=== PATIENT | male | born 1995 | race Two or more races ===

== ENCOUNTER 2019-06-15 20:44 | Emergency (ER) | payer SELFPAY ==
--- NOTE | 2019-06-15 22:19 | ER Document Report ---
ED Medical Screen (RME) - General Chief Complaint: Drug Abuse Stated Complaint: DETOX Time Seen by Provider: 06/15/19 22:17 Notes: 24-year-old male presents for detox from marijuana and methamphetamine. Patient denies SI or HI. Patient is nontoxic, well-appearing. I have greeted and performed a rapid initial assessment of this patient. A comprehensive ED assessment and evaluation of the patient, analysis of test results and completion of the medical decision making process with be conducted by additional ED providers. TRAVEL OUTSIDE OF THE U.S. IN LAST 30 DAYS: No - Related Data Allergies/Adverse Reactions: No Known Allergies Allergy (Unverified 06/15/19 22:15) Past Medical History - Social History Frequency of alcohol use: Rare Physical Exam - Vital signs Vitals: Temp Pulse Resp BP Pulse Ox 97.6 F 58 L 18 102/70 100 06/15/19 22:00 06/15/19 22:00 06/15/19 22:00 06/15/19 22:00 06/15/19 22:00 Course - Vital Signs Vital signs: Temp Pulse Resp BP Pulse Ox 97.6 F 58 L 18 102/70 100 06/15/19 22:00 06/15/19 22:00 06/15/19 22:00 06/15/19 22:00 06/15/19 22:00
[2019-06-15 22:58] LABS: ABSOLUTE EOSINOPHILS # (AUTO) 0.2 10^3/uL (0.0-0.6); ABSOLUTE LYMPHOCYTES (AUTO) 3.5 10^3/uL (0.5-4.7); ABSOLUTE MONOCYTES (AUTO) 0.9 10^3/uL (0.1-1.4); ABSOLUTE NEUT (AUTO) 9.4 10^3/uL (1.7-8.2); BASOPHILS % (AUTO) 0.2 % (0-2); EOSINOPHILS % (AUTO) 1.8 % (0-6); HEMATOCRIT 44.2 % (37.9-51.0); HEMOGLOBIN 15.1 g/dL (13.5-17.0); LYMPHOCYTES % (AUTO) 25.1 % (13-45); MEAN CORPUSCULAR HEMOGLOBIN 31.3 pg (27.0-33.4); MEAN CORPUSCULAR HGB CONC 34.3 g/dL (32.0-36.0); MEAN CORPUSCULAR VOLUME 91 fl (80-97); MONOCYTES % (AUTO) 6.2 % (3-13); PLATELET COUNT 312 10^3/uL (150-450); RED BLOOD COUNT 4.83 10^6/uL (4.35-5.55); RED CELL DISTRIBUTION WIDTH 13.1 % (11.5-14.0); SEGMENTED NEUTROPHILS % (AUTO) 66.7 % (42-78); TOTAL CELLS COUNTED % (AUTO) 100 %; WHITE BLOOD COUNT 14.1 10^3/uL (4.0-10.5)
[2019-06-15 23:14] LABS: ACETAMINOPHEN < 10 ug/mL (10-30); ALBUMIN 4.4 g/dL (3.5-5.0); ALCOHOL < 10 mg/dL (NONE DETECTED); ALKALINE PHOSPHATASE 72 U/L (38-126); ANION GAP 7 (5-19); ASPARTATE AMINO TRANSFERASE 24 U/L (17-59); BILIRUBIN,TOTAL 0.7 mg/dL (0.2-1.3); BLOOD UREA NITROGEN 11 mg/dL (7-20); CALCIUM 9.7 mg/dL (8.4-10.2); CARBON DIOXIDE 29 mmol/L (22-30); CHLORIDE 104 mmol/L (98-107); GLUCOSE 80 mg/dL (75-110); POTASSIUM 4.3 mmol/L (3.6-5.0); SALICYLATE < 1.0 mg/dL (2.0-20.0); TOTAL PROTEIN 7.2 g/dL (6.3-8.2)
[2019-06-15 23:18] LABS: URINE AMPHETAMINES SCREEN NEGATIVE; URINE BARBITURATES SCREEN NEGATIVE; URINE BENZODIAZEPINES SCREEN NEGATIVE; URINE COCAINE SCREEN NEGATIVE; URINE MARIJUANA (THC) SCREEN NEGATIVE; URINE METHADONE SCREEN NEGATIVE; URINE PHENCYCLIDINE SCREEN NEGATIVE
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
[2019-06-16 03:20] VITALS: BP 104/58
--- NOTE | 2019-06-16 16:20 | EKG REPORT ---
SEVERITY:- ABNORMAL ECG - SINUS RHYTHM INFERIOR Q WAVES, PROBABLY NORMAL VARIATION BORDERLINE T ABNORMALITIES, ANT-LAT LEADS ST ELEVATION SUGGESTS PERICARDITIS : Confirmed by: Yodit Cordova MD 16-Jun-2019 16:18:59
== END 2019-06-16 03:43 | disposition home or self-care (01) ==
LOC: ER 20:44
DX: F15.10 Other stimulant abuse, uncomplicated (principal); F12.10 Cannabis abuse, uncomplicated; F17.200 Nicotine dependence, unspecified, uncomplicated
CPT/HCPCS: 36415; 80053; 80307; 85025; 93005; 93010; 99283

== ENCOUNTER 2019-06-16 03:56 | Emergency (ER) | payer SELFPAY ==
--- NOTE | 2019-06-16 06:23 | RADIOLOGY REPORT (SQ) ---
Left foot radiographs: 06/16/2019 5:21 AM [employer] TECHNIQUE: AP, lateral, oblique images of the left foot were obtained. COMPARISON: None available HISTORY: 24-year old patient with left foot pain. FINDINGS: There is an acute fracture through the second metatarsal head with diffuse overlying soft tissue swelling. No gross intra-articular extension is seen. IMPRESSION: There is an acute fracture through the second metatarsal of the left foot.
[2019-06-16] MEDS ORDERED: IBUPROFEN 800 MG TABLET PO ONE (08:45)
[2019-06-16 09:29] VITALS: BP 116/74
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
== END 2019-06-16 09:15 | disposition home or self-care (01) ==
LOC: ER 03:56
DX: S92.322A Displaced fracture of second metatarsal bone, left foot, initial encounter for closed fracture (principal); W22.09XA Striking against other stationary object, initial encounter; Y93.89 Activity, other specified; F15.10 Other stimulant abuse, uncomplicated; Z59.0 Homelessness
CPT/HCPCS: 99283

== ENCOUNTER 2019-07-16 09:28 | Emergency (ER) | payer OTHER ==
[2019-07-16 09:33] VITALS: BP 123/71
--- NOTE | 2019-07-16 10:02 | ER Document Report ---
HPI - HPI Patient complains to provider of: Medication injection Time Seen by Provider: 07/16/19 09:41 Onset: Other Pain Level: Denies Context: 24-year-old male presented to ED for a "medication injection for a anxiety medicine that he needs to get monthly. He did not know the name of the medication the dose or anything about the medication. He did not bring any kind of paperwork with him for me to be able to order the medications. I have informed him that he needs to go to where he got his medication last months have them give him his dose today and then bring paperwork with the name medication dose well and everything for the medication if he would like us to give him the injection. He needs to have 1 of the providers call here to let us know what the medication is that he will need to be receiving. He states he would also like to talk to mental health concerning a new placement as he has been evicted from his current placement. I have spoken with mental health and they have given you the phone numbers and resources and I have provided them to the patient to try to find placement. Associated Symptoms: None Exacerbated by: Denies Relieved by: Denies Similar symptoms previously: Yes Recently seen / treated by doctor: Yes - CONSTITUTIONAL Constitutional: DENIES: Fever, Chills - EENT EENT: DENIES: Sore Throat, Ear Pain, Nasal Drainage-Clear, Nasal Drainage- Purulent, Congestion, Eye problems - NEURO Neurology: DENIES: Headache, Weakness, Vision blurred, Dizzinesss / Vertigo - CARDIOVASCULAR Cardiovascular: DENIES: Chest pain - RESPIRATORY Respiratory: DENIES: Trouble Breathing, Coughing - GASTROINTESTINAL Gastrointestinal: DENIES: Abdominal Pain, Nausea, Patient vomiting, Diarrhea, Constipation, Black / Bloody Stools - URINARY Urinary: DENIES: Dysuria, Urgency, Frequency - REPRODUCTIVE Reproductive: DENIES: :, Postmenopausal, Abnormal bleeding / discharge - MUSCULOSKELETAL Musculoskeletal: DENIES: Extremity pain, Back Pain, Neck Pain, Swelling - DERM Skin Color: Normal Skin Problems: None Past Medical History - General Information source: Patient - Social History Smoking Status: Current Every Day Smoker Cigarette use (# per day): Yes - Pack a day Chew tobacco use (# tins/day): No Smoking Education Provided: Yes - 4 minutes Frequency of alcohol use: None Drug Abuse: None Lives with: Family Family History: Reviewed & Not Pertinent Patient has suicidal ideation: No Patient has homicidal ideation: No - Past Medical History Cardiac Medical History: Reports: None Pulmonary Medical History: Reports: None EENT Medical History: Reports: None Neurological Medical History: Reports: None Endocrine Medical History: Reports: None Renal/ Medical History: Reports: None GI Medical History: Reports: None Musculoskeletal Medical History: Reports Hx Musculoskeletal Trauma Skin Medical History: Reports None Psychiatric Medical History: Reports: Hx Anxiety, Hx Bipolar Disorder Traumatic Medical History: Reports: Hx Fractures Infectious Medical History: Reports: None Surgical Hx: Negative Past Surgical History: Reports: None - Immunizations Immunizations up to date: Yes Vertical Provider Document - CONSTITUTIONAL Agree With Documented VS: Yes Exam Limitations: No Limitations General Appearance: WD/WN, No Apparent Distress - INFECTION CONTROL TRAVEL OUTSIDE OF THE U.S. IN LAST 30 DAYS: No - HEENT HEENT: Atraumatic, Normal ENT Exam, Normocephalic, PERRLA - NECK Neck: Normal Inspection, Supple, Thyroid Normal - RESPIRATORY Respiratory: Breath Sounds Normal, No Respiratory Distress, Chest Non-Tender - CARDIOVASCULAR Cardiovascular: Regular Rate, Regular Rhythm, No Murmur - GI/ABDOMEN Gastrointestinal: Abdomen Soft, Abdomen Non-Tender, No Organomegaly, Normal Bowel Sounds - BACK Back: Normal Inspection - NEURO Level of Consciousness: Awake, Alert, Appropriate Motor/Sensory: No Motor Deficit, No Sensory Deficit, No Pronator Drift Deep Tendon Reflexes: 2+ - DERM Integumentary: Warm, Dry, No Rash Course - Vital Signs Vital signs: Temp Pulse Resp BP Pulse Ox 97.5 F 88 18 123/71 97 07/16/19 09:32 07/16/19 09:32 07/16/19 09:32 07/16/19 09:32 07/16/19 09:32 Discharge - Discharge Clinical Impression: Medication requested by patient but not prescribed or administered Disposition: HOME, SELF-CARE Additional Instructions: You were seen today for a refill/IM injection of a medication that you do not know the name or dose of. I have requested you go to the facility that you received this at last month have them give you a shot today and then send us a request for you to get this medication at the frequency dose and route that you are supposed to be getting this medication. Have them call the [facility] emergency room to let us know what the medication is a week and see if we gave that in the emergency room. You should also contact the resources I gave you for placement for you a place to live and contact the for human services to see if they give the medication that you are requesting at their facility. FOLLOW-UP CARE: If you have been referred to a physician for follow-up care, call the physicians office for an appointment as you were instructed or within the next two days. If you experience worsening or a significant change in your symptoms, notify the physician immediately or return to the Emergency Department at any time for re-evaluation. Forms: Smoking Cessation Education
== END 2019-07-16 10:10 | disposition home or self-care (01) ==
LOC: ER 09:28
DX: F41.9 Anxiety disorder, unspecified (principal); F17.210 Nicotine dependence, cigarettes, uncomplicated; Z71.6 Tobacco abuse counseling
CPT/HCPCS: 99281; 99406

== ENCOUNTER 2019-07-20 14:30 | Emergency (ER) | payer OTHER, MEDICAID ==
--- NOTE | 2019-07-20 15:08 | ER Document Report ---
ED Medical Screen (RME) - General Chief Complaint: Medical Clearance Stated Complaint: MEDICAL CLEARANCE Time Seen by Provider: 07/20/19 15:05 Mode of Arrival: Ambulatory Information source: Patient Notes: 24-year-old male presented to ED for clearance to go to [facility]. He states he needs to go to [facility] for mental health issues alcohol abuse and methamphetamine abuse. He is alert oriented respirations regular nonlabored speaking in full sentences. He was at [facility] but a month ago. I have greeted and performed a rapid initial assessment of this patient. A comprehensive ED assessment and evaluation of the patient, analysis of test results and completion of medical decision making process will be conducted by an additional ED providers. TRAVEL OUTSIDE OF THE [place].S. IN LAST 30 DAYS: No - Related Data Allergies/Adverse Reactions: No Known Allergies Allergy (Verified 07/16/19 09:33) Past Medical History Musculoskeltal Medical History: Reports Hx Musculoskeletal Trauma Psychiatric Medical History: Reports: Hx Anxiety, Hx Bipolar Disorder Traumatic Medical History: Reports: Hx Fractures - Immunizations Immunizations up to date: Yes Physical Exam - Vital signs Vitals: Temp Pulse Resp BP Pulse Ox 97.5 F 117 H 16 105/74 98 07/20/19 14:37 07/20/19 14:37 07/20/19 14:37 07/20/19 14:37 07/20/19 14:37 Course - Vital Signs Vital signs: Temp Pulse Resp BP Pulse Ox 97.5 F 117 H 16 105/74 98 07/20/19 14:37 07/20/19 14:37 07/20/19 14:37 07/20/19 14:37 07/20/19 14:37
--- NOTE | 2019-07-20 15:10 | ER Document Report ---
ED General - General Mode of Arrival: Ambulatory TRAVEL OUTSIDE OF THE U.S. IN LAST 30 DAYS: No - General Chief Complaint: Medical Clearance Stated Complaint: MEDICAL CLEARANCE Time Seen by Provider: 07/20/19 15:05 - Related Data Allergies/Adverse Reactions: No Known Allergies Allergy (Verified 07/16/19 09:33) Past Medical History - General Information source: Patient - Social History Smoking Status: Current Every Day Smoker Chew tobacco use (# tins/day): No Frequency of alcohol use: Heavy Drug Abuse: Methamphetamine Family History: Reviewed & Not Pertinent Patient has suicidal ideation: No Patient has homicidal ideation: No Musculoskeletal Medical History: Reports Hx Musculoskeletal Trauma Psychiatric Medical History: Reports: Hx Anxiety, Hx Bipolar Disorder Traumatic Medical History: Reports: Hx Fractures - Immunizations Immunizations up to date: Yes Physical Exam - Vital signs Vitals: Temp Pulse Resp BP Pulse Ox 97.5 F 117 H 16 105/74 98 07/20/19 14:37 07/20/19 14:37 07/20/19 14:37 07/20/19 14:37 07/20/19 14:37 Course - Vital Signs Vital signs: Temp Pulse Resp BP Pulse Ox 97.5 F 117 H 16 105/74 98 07/20/19 14:37 07/20/19 14:37 07/20/19 14:37 07/20/19 14:37 07/20/19 14:37
--- NOTE | 2019-07-20 15:45 | ER Document Report ---
ED General - General Chief Complaint: Medical Clearance Stated Complaint: MEDICAL CLEARANCE Time Seen by Provider: 07/20/19 15:05 Mode of Arrival: Ambulatory Information source: Patient Notes: per triage note; Pt desires to detox from alcohol and meth use. Was at [facility] a month ago but has since relapsed. Pt denies drinking this AM. Also, denies S/I and H/I. per [facility] notes; 24-year-old male presented to ED for clearance to go to [facility]. He states he needs to go to [facility] for mental health issues alcohol abuse and methamphetamine abuse. He is alert oriented respirations regular nonlabored speaking in full sentences. He was at [facility] but a month ago. 24 year old male arrives with desire to go to rehab. Patient has never been to [facility] or to any rehab center. He has had abstinence from alcohol for 1 month as well as meth amphetamines for 1 month. He reports he started using meth 2 years ago and started drinking alcohol when he was 17 years old he denies any shakes at this time he does have facial acne maculopapular lesions and multiple tattoos. TRAVEL OUTSIDE OF THE [place].S. IN LAST 30 DAYS: No - Related Data Allergies/Adverse Reactions: No Known Allergies Allergy (Verified 07/16/19 09:33) Past Medical History - General Information source: Patient - Social History Smoking Status: Current Every Day Smoker Cigarette use (# per day): Yes Chew tobacco use (# tins/day): No Smoking Education Provided: Yes Frequency of alcohol use: Heavy Drug Abuse: Methamphetamine Family History: Reviewed & Not Pertinent Patient has suicidal ideation: No Patient has homicidal ideation: No EENT Medical History: Reports: Other - Facial acne Neurological Medical History: Reports: None - Facial acne good advice Renal/ Medical History: Reports: None Musculoskeletal Medical History: Reports Hx Musculoskeletal Trauma Psychiatric Medical History: Reports: Hx Anxiety, Hx Bipolar Disorder Traumatic Medical History: Reports: Hx Fractures - Immunizations Immunizations up to date: Yes Review of Systems - Review of Systems Constitutional: No symptoms reported EENT: No symptoms reported Respiratory: No symptoms reported Gastrointestinal: No symptoms reported - Marriages for the last Physical Exam - Vital signs Vitals: Temp Pulse Resp BP Pulse Ox 97.5 F 117 H 16 105/74 98 07/20/19 14:37 07/20/19 14:37 07/20/19 14:37 07/20/19 14:37 07/20/19 14:37 - General General appearance: Appears well - 5% kick start and cough sick coffee some ne eds some black no shaking impressive so when I can - HEENT Head: Normocephalic Eyes: Normal Conjunctiva: Normal - She is faking that if Cornea: Normal Extraocular movements intact: Yes Eyelashes: Normal Pupils: PERRL Nasal: Normal Mouth/Lips: Normal Mucous membranes: Normal Pharynx: Normal Neck: Normal - Respiratory Respiratory status: No respiratory distress Chest status: Nontender Breath sounds: Normal Chest palpation: Normal - Cardiovascular Rhythm: Regular Heart sounds: Normal auscultation Murmur: No Friction rub: No Tremayne's crunch: No - Abdominal Inspection: Normal Distension: No distension Bowel sounds: Normal Tenderness: Nontender Organomegaly: No organomegaly - Back Back: Normal - Extremities General upper extremity: Normal inspection - Is just chronic General lower extremity: Normal inspection - Neurological Neuro grossly intact: Yes Cognition: Normal Orientation: AAOx4 [place] Coma Scale Eye Opening: Spontaneous [place] Coma Scale Verbal: Oriented [place] Coma Scale Motor: Obeys Commands Hailey Coma Scale Total: 15 Speech: Normal Cranial nerves: Normal Cerebellar coordination: Normal Motor strength normal: LUE, RUE, LLE, RLE - Psychological Associated symptoms: Normal affect - Skin Skin Temperature: Warm Skin Moisture: Dry Notes: Diffuse acne maculopapular over face Course - Vital Signs Vital signs: Temp Pulse Resp BP Pulse Ox 97.4 F 66 18 124/63 100 07/20/19 17:31 07/20/19 17:31 07/20/19 17:31 07/20/19 17:31 07/20/19 17:31 - Laboratory Result Diagrams: 07/20/19 15:27 07/20/19 15:27 Laboratory results interpreted by me: 07/20/19 07/20/19 15:27 15:27 WBC 12.6 H ALT 59 H Salicylates < 1.0 L Acetaminophen < 10 L Critical Care Note - Critical Care Note Total time excluding time spent on procedures (mins): 90 Comments: This patient also had his case discussed with psychiatric and he was advised to follow-up with [facility] but may not be admitted because he is now 1 month of meth and alcohol. Discharge - Discharge Clinical Impression: Methamphetamine addiction, Alcohol abuse, Encounter for medical clearance for patient hold Condition: Good Disposition: HOME, SELF-CARE Additional Instructions: Transfer patient to DX or rehab of choice and availability patient is medically cleared.
[2019-07-20 15:50] LABS: ABSOLUTE EOSINOPHILS # (AUTO) 0.2 10^3/uL (0.0-0.6); ABSOLUTE LYMPHOCYTES (AUTO) 3.3 10^3/uL (0.5-4.7); ABSOLUTE MONOCYTES (AUTO) 0.9 10^3/uL (0.1-1.4); ABSOLUTE NEUT (AUTO) 8.1 10^3/uL (1.7-8.2); BASOPHILS % (AUTO) 0.3 % (0-2); EOSINOPHILS % (AUTO) 1.6 % (0-6); HEMATOCRIT 44.2 % (37.9-51.0); HEMOGLOBIN 15.2 g/dL (13.5-17.0); LYMPHOCYTES % (AUTO) 26.4 % (13-45); MEAN CORPUSCULAR HEMOGLOBIN 31.2 pg (27.0-33.4); MEAN CORPUSCULAR HGB CONC 34.3 g/dL (32.0-36.0); MEAN CORPUSCULAR VOLUME 91 fl (80-97); MONOCYTES % (AUTO) 7.2 % (3-13); PLATELET COUNT 352 10^3/uL (150-450); RED BLOOD COUNT 4.86 10^6/uL (4.35-5.55); RED CELL DISTRIBUTION WIDTH 13.4 % (11.5-14.0); SEGMENTED NEUTROPHILS % (AUTO) 64.5 % (42-78); TOTAL CELLS COUNTED % (AUTO) 100 %; WHITE BLOOD COUNT 12.6 10^3/uL (4.0-10.5)
[2019-07-20 16:06] LABS: ALBUMIN 4.6 g/dL (3.5-5.0); ALKALINE PHOSPHATASE 94 U/L (38-126); ANION GAP 11 (5-19); ASPARTATE AMINO TRANSFERASE 44 U/L (17-59); BILIRUBIN,TOTAL 0.9 mg/dL (0.2-1.3); BLOOD UREA NITROGEN 7 mg/dL (7-20); CALCIUM 9.8 mg/dL (8.4-10.2); CARBON DIOXIDE 27 mmol/L (22-30); CHLORIDE 101 mmol/L (98-107); GLUCOSE 81 mg/dL (75-110); POTASSIUM 4.1 mmol/L (3.6-5.0); TOTAL PROTEIN 7.8 g/dL (6.3-8.2)
[2019-07-20 16:14] LABS: ACETAMINOPHEN < 10 ug/mL (10-30); ALCOHOL < 10 mg/dL (NONE DETECTED); SALICYLATE < 1.0 mg/dL (2.0-20.0)
[2019-07-20 16:25] LABS: APPEARANCE,URINE CLEAR; BILIRUBIN,URINE NEGATIVE (NEGATIVE); COLOR,URINE YELLOW; GLUCOSE, URINE NEGATIVE (NEGATIVE); KETONES,URINE NEGATIVE (NEGATIVE); LEUKOCYTE ESTERASE,URINE NEGATIVE (NEGATIVE); NITRITE,URINE NEGATIVE (NEGATIVE); PROTEIN,URINE NEGATIVE (NEGATIVE); URINE SPECIFIC GRAVITY 1.008; UROBILINOGEN,URINE NEGATIVE mg/dL (<2.0)
[2019-07-20 16:36] LABS: URINE AMPHETAMINES SCREEN NEGATIVE; URINE BARBITURATES SCREEN NEGATIVE; URINE BENZODIAZEPINES SCREEN NEGATIVE; URINE COCAINE SCREEN NEGATIVE; URINE MARIJUANA (THC) SCREEN NEGATIVE; URINE METHADONE SCREEN NEGATIVE; URINE PHENCYCLIDINE SCREEN NEGATIVE
[2019-07-20 17:31] VITALS: BP 124/63
--- NOTE | 2019-07-21 11:48 | EKG REPORT ---
SEVERITY:- BORDERLINE ECG - SINUS RHYTHM INFERIOR Q WAVES, PROBABLY NORMAL VARIATION : Confirmed by: Clair Sweet 21-Jul-2019 11:46:58
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
== END 2019-07-20 18:23 | disposition home or self-care (01) ==
LOC: ER 14:30
DX: F15.29 Other stimulant dependence with unspecified stimulant-induced disorder (principal); F10.10 Alcohol abuse, uncomplicated; L70.8 Other acne; Z59.0 Homelessness
CPT/HCPCS: 36415; 80053; 80307; 81001; 84443; 85025; 93005; 93010; 99284

== ENCOUNTER 2019-07-26 16:40 | Emergency (ER) | payer OTHER, MEDICAID | END 2019-07-26 17:15 | disposition left against medical advice (07) | LOC: ER 16:40 | DX: Z53.21 Procedure and treatment not carried out due to patient leaving prior to being seen by health care provider (principal) ==

== ENCOUNTER 2019-08-08 10:41 | Emergency (ER) | payer MEDICAID, OTHER ==
[2019-08-08] MEDS ORDERED: LIDOCAINE 2%/EPINEPHRINE INJ 20 ML VIAL INJ ONE (10:47)
[2019-08-08] MEDS ORDERED: LIDOCAINE 1% INJ-PF (10 MG/ML) 30 ML SDV INJ ONE (10:47)
[2019-08-08] MEDS ORDERED: ONDANSETRON 4 MG TAB.RAPDIS PO ONE (10:47)
[2019-08-08] MEDS ORDERED: HYDROCODONE/ACETAMINOPHEN 10-325 MG TABLET PO ONE (10:47)
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
--- NOTE | 2019-08-08 12:07 | RADIOLOGY REPORT (SQ) ---
EXAM DESCRIPTION: HUMERUS RIGHT IMAGES COMPLETED DATE/TIME: 08/08/2019 11:45 am REASON FOR STUDY: ? glass or FB COMPARISON: None. NUMBER OF VIEWS: Two views. TECHNIQUE: Two radiographic images were acquired of the right humerus to include elbow and shoulder in at least one projection. LIMITATIONS: None. FINDINGS: MINERALIZATION: Normal. BONES: No acute fracture or dislocation. No worrisome bone lesions. SOFT TISSUES: There is a laceration over the distal right upper arm. No retained radiopaque foreign body is identified. OTHER: No other significant finding. IMPRESSION: There is a laceration over the distal right upper arm. No retained radiopaque foreign b zainab is identified. No underlying fracture. TECHNICAL DOCUMENTATION: JOB ID: [id number] 2010 [employer]- All Rights Reserved Reading location - IP/workstation name: [email or web address]
[2019-08-08 12:27] VITALS: BP 128/75
== END 2019-08-08 12:41 | disposition home or self-care (01) ==
LOC: ER 10:41
DX: S41.111A Laceration without foreign body of right upper arm, initial encounter (principal); X99.0XXA Assault by sharp glass, initial encounter; F17.200 Nicotine dependence, unspecified, uncomplicated; F20.9 Schizophrenia, unspecified
CPT/HCPCS: 99283; 73060; 12005; S0119; J3490

== ENCOUNTER 2019-08-18 16:49 | Emergency (ER) | payer MEDICAID, OTHER ==
[2019-08-18 16:55] VITALS: BP 121/54
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
== END 2019-08-18 17:23 | disposition home or self-care (01) ==
LOC: ER 16:49
DX: S41.111D Laceration without foreign body of right upper arm, subsequent encounter (principal); S61.511D Laceration without foreign body of right wrist, subsequent encounter; X58.XXXD Exposure to other specified factors, subsequent encounter; T81.33XA Disruption of traumatic injury wound repair, initial encounter; Y84.8 Other medical procedures as the cause of abnormal reaction of the patient, or of later complication, without mention of misadventure at the time of the procedure; F17.200 Nicotine dependence, unspecified, uncomplicated

== ENCOUNTER 2019-08-26 10:41 | Emergency (ER) | payer OTHER ==
[2019-08-26 10:54] VITALS: BP 138/70
--- NOTE | 2019-08-26 13:12 | ER Document Report ---
Entered by BRENDEN BURNS SCRIBE 08/26/19 1130 Acting as scribe for:RICHARD BOURNE MD ED General - General Chief Complaint: Medication Refill Stated Complaint: MEDICATION REFILL Time Seen by Provider: 08/26/19 11:16 Mode of Arrival: Ambulatory Information source: Patient Notes: This 24-year-old male patient with bipolar disorder presents to the emergency department today with complaints of needing a psych med refill. Patient reports he missed his appointment for refills yesterday. Patient has a therapy appointment today at 3pm which he states he will be attending. Patient has no other complaints. TRAVEL OUTSIDE OF THE [place] IN LAST 30 DAYS: No - Related Data Allergies/Adverse Reactions: No Known Allergies Allergy (Verified 08/26/19 11:05) Home Medications: abilify, celexa, risperidone Past Medical History - General Information source: Patient - Social History Smoking Status: Current Every Day Smoker Cigarette use (# per day): Yes Chew tobacco use (# tins/day): No Frequency of alcohol use: weekly Drug Abuse: None Family History: Reviewed & Not Pertinent Patient has suicidal ideation: No Patient has homicidal ideation: No Musculoskeletal Medical History: Reports Hx Musculoskeletal Trauma Psychiatric Medical History: Reports: Hx Anxiety, Hx Bipolar Disorder Traumatic Medical History: Reports: Hx Fractures Surgical Hx: Negative - Immunizations Immunizations up to date: Yes Review of Systems - Review of Systems Constitutional: See HPI, Other - med refill EENT: No symptoms reported Cardiovascular: No symptoms reported Respiratory: No symptoms reported Gastrointestinal: No symptoms reported Genitourinary: No symptoms reported Male Genitourinary: No symptoms reported Musculoskeletal: No symptoms reported Skin: No symptoms reported Hematologic/Lymphatic: No symptoms reported Neurological/Psychological: No symptoms reported -: Yes All other systems reviewed and negative Physical Exam - Vital signs Vitals: Temp Pulse Resp BP Pulse Ox 97.3 F 83 18 138/70 H 100 08/26/19 10:45 08/26/19 10:45 08/26/19 10:45 08/26/19 10:45 08/26/19 10:45 - Notes Notes: Physical Exam: General: Alert, appears well. HEENT: Normocephalic. Atraumatic. PERRLA. Extraocular movements intact. Oropharynx clear. Neck: Supple. Respiratory: No respiratory distress. Abdominal: Normal Inspection. No distension. Extremities: Moves all four extremities. Neurological: Normal cognition. AAOx4. Normal speech. Psychological: Normal affect. Normal Mood. Skin: Warm. Dry. Normal color. Course - Vital Signs Vital signs: Temp Pulse Resp BP Pulse Ox 97.3 F 83 18 138/70 H 100 08/26/19 10:45 08/26/19 10:45 08/26/19 10:45 08/26/19 10:45 08/26/19 10:45 Discharge - Discharge Clinical Impression: Medication refill Condition: Stable Disposition: HOME, SELF-CARE Additional Instructions: Take the medications as prescribed. Be sure you are taking your nighttime dose of Risperdal. Go to your appointment at [facility] this afternoon as scheduled. While you are at [facility], schedule a follow-up appointment in the next week to get your medications refilled. RETURN TO THE EMERGENCY ROOM IF ANY NEW OR WORSENING SYMPTOMS. Prescriptions: Abilify 10mg 1 tab PO BID #20 Citalopram Hydrobromide [Celexa] 10 mg PO DAILY #5 tablet Risperidone [Risperdal 1 mg Tablet] 1 mg PO QAM #10 tablet I personally performed the services described in the documentation, reviewed and edited the documentation which was dictated to the scribe in my presence, and it accurately records my words and actions.
== END 2019-08-26 11:52 | disposition home or self-care (01) ==
LOC: ER 10:41
DX: Z76.0 Encounter for issue of repeat prescription (principal); F31.9 Bipolar disorder, unspecified; F17.210 Nicotine dependence, cigarettes, uncomplicated; Z79.899 Other long term (current) drug therapy
CPT/HCPCS: 99281

== ENCOUNTER 2020-01-03 11:34 | Emergency (ER) | payer MEDICAID ==
[2020-01-03 11:50] VITALS: BP 117/76
[2020-01-03] MEDS ORDERED: MUPIROCIN 2% OINTMENT 22 GM TP ONE (12:02)
--- NOTE | 2020-01-03 12:03 | ER Document Report ---
HPI - HPI Time Seen by Provider: 01/03/20 11:50 Pain Level: 3 Notes: 24-year-old male patient presenting to the emergency department chief complaint of possible infection to his left lower extremity. He states that is been there for about a week. - ROS Systems Reviewed and Negative: Yes All other systems reviewed and negative - CONSTITUTIONAL Constitutional: DENIES: Fever, Chills - REPRODUCTIVE Reproductive: DENIES: : - MUSCULOSKELETAL Musculoskeletal: REPORTS: Extremity pain Past Medical History - General Information source: Patient - Social History Smoking Status: Current Every Day Smoker Family History: Reviewed & Not Pertinent Musculoskeletal Medical History: Reports Hx Musculoskeletal Trauma Psychiatric Medical History: Reports: Hx Anxiety, Hx Bipolar Disorder Traumatic Medical History: Reports: Hx Fractures - Immunizations Immunizations up to date: Yes Vertical Provider Document - CONSTITUTIONAL Notes: PHYSICAL EXAMINATION: GENERAL: Well-appearing, well-nourished and in no acute distress. HEAD: Atraumatic, normocephalic. EYES: Pupils equal round extraocular movements intact, conjunctiva are normal. ENT: Nares patent NECK: Normal range of motion LUNGS: No respiratory distress Musculoskeletal: Normal range of motion NEUROLOGICAL: Normal speech, normal gait. PSYCH: Normal mood, normal affect. SKIN: Small area of erythema noted to lateral left lower extremity. No induration or fluctuance. - INFECTION CONTROL TRAVEL OUTSIDE OF THE [place] IN LAST 30 DAYS: No Course - Re-evaluation Re-evalutation: Patient appears well, nontoxic vital signs within normal limits. Patient has mild cellulitis to left lower extremity likely secondary to an insect bite. Patient will be started on appropriate antibiotics. Patient understands ED return precautions. - Vital Signs Vital signs: Temp Pulse Resp BP Pulse Ox 97.8 F 79 16 117/76 98 01/03/20 11:48 01/03/20 11:48 01/03/20 11:48 01/03/20 11:48 01/03/20 11:48 Discharge - Discharge Clinical Impression: Cellulitis of left lower extremity Condition: Stable Disposition: HOME, SELF-CARE Additional Instructions: The rash is likely due to infection of your skin. You need to take the antibiotics as prescribed. Use the topical antibiotic cream 3 times daily. Do not stop even if the rash goes away until you have completed all the antibiotics. You should also return if you develop fevers with temperature greater than 101, persistent vomiting, worsening pain, or have any other symptoms that are concerning to you. Prescriptions: Sulfamethoxazole/Trimethoprim [Bactrim Ds Tablet] 1 tab PO BID #14 tablet
== END 2020-01-03 12:22 | disposition home or self-care (01) ==
LOC: ER 11:34
DX: L03.116 Cellulitis of left lower limb (principal); F17.200 Nicotine dependence, unspecified, uncomplicated
CPT/HCPCS: 99283; J3490

== ENCOUNTER 2020-01-04 09:01 | Emergency (ER) | payer MEDICAID ==
[2020-01-04 09:13] VITALS: BP 140/78
[2020-01-04 09:27] LABS: APPEARANCE,URINE CLEAR; BILIRUBIN,URINE NEGATIVE (NEGATIVE); COLOR,URINE YELLOW; GLUCOSE, URINE NEGATIVE (NEGATIVE); KETONES,URINE NEGATIVE (NEGATIVE); PROTEIN,URINE NEGATIVE (NEGATIVE); URINE SPECIFIC GRAVITY 1.008; UROBILINOGEN,URINE NEGATIVE mg/dL (<2.0)
[2020-01-04] MEDS ORDERED: AZITHROMYCIN 250 MG TABLET PO ONE (10:16)
[2020-01-04] MEDS ORDERED: LIDOCAINE 1% INJ-PF (10 MG/ML) 30 ML SDV INJ ONE (10:17)
[2020-01-04] MEDS ORDERED: CEFTRIAXONE INJ 250 MG VIAL IM ONE (10:17)
--- NOTE | 2020-01-04 10:18 | ER Document Report ---
ED GI/ - General Chief Complaint: STD Exposure Stated Complaint: STD CHECK Time Seen by Provider: 01/04/20 10:11 Primary Care Provider: NORMA MANRIQUE MD [NO LOCAL MD] - Follow up as needed Mode of Arrival: Ambulatory Information source: Patient Notes: 24-year-old male presented to ED for complaint of need for STD checks pain. He states he has pain with urination. He denies any discharge. States he does have pain with intercourse or urination. He states he does have some discomfort in his testicles. He is alert oriented respirations regular nonlabored speaking in full sentences. REVIEW OF SYSTEMS: CONSTITUTIONAL : Denies fever, chills, or sweats. Denies recent illness. EENT: Denies eye, ear, throat, or mouth pain or symptoms. Denies nasal or sinus congestion. CARDIOVASCULAR: Denies chest pain. RESPIRATORY: Denies cough, cold, or chest congestion. Denies shortness of breath, difficulty breathing, or wheezing. GASTROINTESTINAL: Denies abdominal pain. Denies nausea, vomiting, or diarrhea. Denies constipation. Last BM: GENITOURINARY: Denies difficulty urinating, painful urination, burning, frequency, or blood in urine. FEMALE GENITOURINARY: Denies vaginal bleeding, abnormal or irregular periods. LMP: MUSCULOSKELETAL: Denies neck or back pain or joint pain or swelling. SKIN: Denies rash or skin lesions. HEMATOLOGIC : Denies easy bruising or bleeding. LYMPHATIC: Denies swollen, enlarged glands. NEUROLOGICAL: Denies altered mental status or loss of consciousness. Denies headache. Denies weakness or paralysis or loss of use of either side. Denies problems with gait or speech. Denies sensory or motor loss. PSYCHIATRIC: Denies anxiety or stress or depression. ALL OTHER SYSTEMS REVIEWED AND NEGATIVE. VITAL SIGNS: Within normal limits. GENERAL: No acute distress, non-toxic appearance. HEAD: Normal with no signs of head trauma. EYES: PERRLA, EOMI, conjunctiva normal, no discharge. EARS: Hearing grossly intact. NOSE: Normal. THROAT: Oropharynx is normal. NECK: Normal range of motion, no tenderness, supple, no lymphadenopathy, No adenopathy, no JVD. CHEST: Clear breath sounds bilaterally. No wheezes, rales, or rhonchi. CARDIAC: Regular rate and rhythm. S1 and S2, without murmurs, gallops, or rubs. VASCULAR: No Edema. Peripheral pulses normal and equal in all extremities. ABDOMEN: Normal and soft with no tenderness, no masses or pulsatile masses. GASTROINTESTINAL: Bowel sounds normal GENITOURINARY: Tenderness to penis and testicles LYMPATHTIC: No lymphadenopathy noted. MUSCULOSKELETAL: Good range of motion of all major joints. Extremities without clubbing, cyanosis or edema. NEUROLOGICAL: Alert and oriented x 3. No focal sensory or strength deficits. Speech normal. Follows commands appropriately. PSYCHIATRIC: Normal Affect, judgement and mood. SKIN: Normal appearance with no rashes or lesions. TRAVEL OUTSIDE OF THE [place] IN LAST 30 DAYS: No - HPI Patient complains to provider of: Testicular pain, Other - STD concern Onset: Last week Timing/Duration: Gradual Quality of pain: Burning Severity at maximum: Mild Severity in ED: None Location: Left testicle, Right testicle Sexual history: Active, Unprotected intercourse, STD exposure Associated symptoms: Other - Pain with urination Exacerbated by: Other Relieved by: Denies - Urination urination Similar symptoms previously: Yes Recently seen / treated by doctor: No - Related Data Allergies/Adverse Reactions: No Known Allergies Allergy (Verified 01/04/20 09:12) Home Medications: Risperdal Past Medical History - General Information source: Patient - Social History Smoking Status: Current Every Day Smoker Cigarette use (# per day): Yes - Pack per day Chew tobacco use (# tins/day): No Smoking Education Provided: Yes - 3 minutes Frequency of alcohol use: Occasional Drug Abuse: None Lives with: Family Family History: Reviewed & Not Pertinent Patient has homicidal ideation: No - Past Medical History Cardiac Medical History: Reports: None Pulmonary Medical History: Reports: None EENT Medical History: Reports: None Neurological Medical History: Reports: None Endocrine Medical History: Reports: None Renal/ Medical History: Reports: None Malignancy Medical History: Reports None GI Medical History: Reports: None Musculoskeletal Medical History: Reports Hx Musculoskeletal Trauma Skin Medical History: Reports None Psychiatric Medical History: Reports: Hx Anxiety, Hx Bipolar Disorder, Hx Schizophrenia Surgical Hx: Negative Past Surgical History: Reports: None - Immunizations Immunizations up to date: Yes Physical Exam - Vital signs Vitals: Temp Pulse Resp BP Pulse Ox 97.4 F 94 20 140/78 H 99 01/04/20 09:12 01/04/20 09:12 01/04/20 09:12 01/04/20 09:12 01/04/20 09:12 Course - Re-evaluation Re-evalutation: 01/04/20 10:22 Patient will be treated with 250 mg of Rocephin IM and azithromycin 1 g. He has been instructed to inform hi sexual partners of this treatment and that they will need to be treated before any further sexual intercourse. He was informed to please call [phone] for the results of his GC and chlamydia. He was told he can call in about 2 hours. Understanding and agreement with this treatment plan he was discharged home. - Vital Signs Vital signs: Temp Pulse Resp BP Pulse Ox 97.4 F 94 20 140/78 H 99 01/04/20 09:12 01/04/20 09:12 01/04/20 09:12 01/04/20 09:12 01/04/20 09:12 Discharge - Discharge Clinical Impression: Concern about STD in male without diagnosis Condition: Stable Disposition: HOME, SELF-CARE Additional Instructions: Urethritis You have urethritis, an infection of the urethra. The usual symptoms are pain on urination and discharge. The infection is often caused by gonorrhea or chlamydia. Treatment is antibiotics. In addition, any sexual contacts should be evaluated by a physician as soon as possible. As this infection can be transmitted sexually, refrain from sexual activity until the infection is confirmed as healed by your physician. If gonorrhea or chlamydia is found on culture, the health department must be notified. Call the doctor at once if you develop difficulty passing your urine, high fever, rash, joint swelling, or other new symptoms. Rocephin You have been given an injection of an antibiotic called Rocephin (ceftriaxone). Sometimes the injection must be combined with antibiotic pills. For some infections, such as an uncomplicated ear infection, Rocephin provides all the antibiotic that's needed. The antibiotic will be in your body for about two days. For serious infections, we usually repeat doses of Rocephin daily. Side effects are very unusual following a shot. Women may develop vaginal yeast infections, and babies can get yeast (thrush) in the mouth following the use of antibiotics. Contact your physician if you have symptoms with this medication. Allergy to this antibiotic can result in hives, wheezing, faintness, or itching. If symptoms of allergy occur, call the doctor at once. AZITHROMYCIN: Azithromycin (Zithromax) is a broad spectrum antibiotic in the same class as erythromycin. It can treat a variety of bacterial infections, but is most frequently used for respiratory infections. Azithromycin is extremely long-lasting. It accumulates in body tissues and continues to kill bacteria for many days. In order to improve absorption, Azithromycin should be taken at least one hour before or two hours after a meal. It does not have the same strong tendency to upset the stomach as erythromycin and is usually very well tolerated. Patients who have had a rash or other true allergic reactions to mery thromycin should not take this medication. Call if you develop gastrointestinal distress, severe diarrhea, rash, hives, itching, or shortness of breath. call for results [phone] FOLLOW-UP CARE: If you have been referred to a physician for follow-up care, call the physicians office for an appointment as you were instructed or within the next two days. If you experience worsening or a significant change in your symptoms, notify the physician immediately or return to the Emergency Department at any time for re-evaluation. Forms: Elevated Blood Pressure, Smoking Cessation Education Referrals: NORMA MANRIQUE MD [NO LOCAL MD] - Follow up as needed
[2020-01-04 11:10] LABS: CHLAM PCR NOT DETECTED (NOT DETECT)
== END 2020-01-04 10:35 | disposition home or self-care (01) ==
LOC: ER 09:01
DX: Z20.2 Contact with and (suspected) exposure to infections with a predominantly sexual mode of transmission (principal); R30.9 Painful micturition, unspecified; N50.812 Left testicular pain; N50.811 Right testicular pain; F17.210 Nicotine dependence, cigarettes, uncomplicated
CPT/HCPCS: 99284; 96372; 81001; 87491; 87591; Q0144; J3490; J0696